=== PATIENT | female | born 1985 | race Caucasian/White ===

== ENCOUNTER 2022-12-12 16:24 | Emergency (ER) | payer OTHER, SELFPAY ==
--- NOTE | ~2022-12-12 | XR_ITS ---
EXAMINATION: XR CHEST CLINICAL INFORMATION: Torus breath COMPARISON: None available. TECHNIQUE: AP view of the chest was obtained. FINDINGS: No significant abnormality is noted involving the heart, lungs, mediastinum, bony thorax or soft tissues. XR/XR chest 1V IMPRESSION: No acute disease.
[2022-12-12 16:33] VITALS: BP 160/90; PULSE 137; RESP 28; TEMP 36.9; O2SAT 100; BMI 22.6
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
[2022-12-12] MEDS: LORazepam 2 MG/ML VIAL 1 MG IVPUSH (16:51)
[2022-12-12 17:02] VITALS: BP 148/89; PULSE 104; RESP 32; O2SAT 99
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
--- NOTE | 2022-12-12 19:28 | PC.NURSE ---
Caleb adjuster and inspector was dealing with the patient and significant other- this nurse overheard while in with another patient that this patient wanted to discharge and was refusing a CT scan, pt eloped without further treatment and was discharged by in home baby sitter.
== END 2022-12-12 18:30 | disposition left against medical advice (07) ==
PROVIDERS: Emergency Provider Emergency Medicine
DX: Z04.1 Encounter for examination and observation following transport accident (principal); F41.9 Anxiety disorder, unspecified; R00.0 Tachycardia, unspecified
CPT/HCPCS: 71045; 96374; 99283; 99284; J2060